=== PATIENT | female | born 1975 | race Caucasian/White ===

== ENCOUNTER → 2021-02-02 | Outpatient (CLI) | payer OTHER ==
[~2021-02-02] MED LIST: CALC600T60 PO; CHOL10003 PO; CYAN100063 PO; Collagen PO; LACT1CAP35 PO; LUTE1CAP PO; MELA5TAB14 PO; MULT-449 PO; VIT1TABL34 PO; [UNRECOGNIZED DRUG - CODE] PO; [UNRECOGNIZED DRUG - OTHER] PO
[2021-02-02 08:38] LABS: BASOPHILS % (AUTO) 1 % (0-1); EOSINOPHILS % (AUTO) 2 % (1-7); LYMPHOCYTES % (AUTO) 30 % (22-44); MEAN CORPUSCULAR HGB CONC 34.7 g/dL (32.4-35.8); MEAN PLATELET VOLUME 8.5 fL (7.4-10.4); MONOCYTES % (AUTO) 9 % (2-9); NEUTROPHILS % (AUTO) 58 % (42-75); PLATELET COUNT 255 x10^3/uL (130-400); RED BLOOD COUNT 4.61 x10^6/uL (3.82-5.3); RED CELL DISTRIBUTION WIDTH 12.2 % (9.6-15.2)
[2021-02-02 08:42] LABS: MICROSCOPIC INDICATED
[2021-02-02 08:51] LABS: ALANINE AMINOTRANSFERASE 26 U/L (12-78); ALBUMIN 3.4 g/dL (3.4-5.0); ANION GAP 4 mmol/L (5-15); CALCIUM 8.4 mg/dL (8.5-10.1); CHLORIDE 108 mmol/L (98-107)
[2021-02-02 08:54] LABS: ALKALINE PHOSPHATASE 64 U/L (45-117); BILIRUBIN,TOTAL 0.5 mg/dL (0.2-1.0); CREATININE 0.64 mg/dL (0.55-1.02); TOTAL PROTEIN 7.2 g/dL (6.4-8.2)
== END | disposition home or self-care (01) ==
LOC: STAR 07:35
PROVIDERS: ATTEND Obstetrics & Gynecology
DX: Z01.818 Encounter for other preprocedural examination (principal); D25.9 Leiomyoma of uterus, unspecified; N92.0 Excessive and frequent menstruation with regular cycle; R10.2 Pelvic and perineal pain
CPT/HCPCS: 36415; 80053; 81001; 85025; 87086

== ENCOUNTER 2021-02-08 05:44 | Day surgery (SDC) | payer OTHER ==
[~2021-02-08] VITALS: Ht 165.1 cm; Wt 81.5 kg
[2021-02-08] MEDS ORDERED: CHLORHEXIDINE 15 ML UDC PO ONE (06:30)
[2021-02-08] MEDS ORDERED: LACTATED RINGERS 1,000 ML IV SCH (06:30)
[2021-02-08] MEDS ORDERED: ACETAMINOPHEN 500 MG TABLET PO ONE (06:30)
[2021-02-08 06:34] VITALS: BP 122/78
[2021-02-08] MEDS ORDERED: FENTANYL PF 250 MCG/5ML ONE (07:03)
[2021-02-08] MEDS ORDERED: MIDAZOLAM 1 MG/ML, 2ML ONE (07:03)
[2021-02-08] MEDS ORDERED: EPINEPHRINE 1 MG/ML, 1ML ONE (07:07)
[2021-02-08] MEDS ORDERED: BUPIVACAINE/PF 0.25% ONE (07:07)
[2021-02-08] MEDS ORDERED: FLUORESCEIN SODIUM 500 MG/5 ML ONE (07:07)
[2021-02-08] MEDS ORDERED: CEFAZOLIN 1,000 MG ONE (07:34)
[2021-02-08] MEDS ORDERED: GLYCOPYRROLATE 0.2MG/1ML, 5ML ONE (07:34)
[2021-02-08] MEDS ORDERED: DEXAMETHASONE 4 MG/ML, 1ML ONE (07:34)
[2021-02-08] MEDS ORDERED: NEOSTIGMINE 1 MG/ML, 10ML ONE (07:34)
[2021-02-08] MEDS ORDERED: ROCURONIUM 10MG/ML,5ML ONE (07:34)
[2021-02-08] MEDS ORDERED: PROPOFOL 10 MG/ML, 20ML ONE (07:34)
[2021-02-08] MEDS ORDERED: ONDANSETRON 2MG/ML, 2ML ONE ×2 (07:34→09:57)
[2021-02-08] MEDS ORDERED: BUPIVACAINE/PF-EPI 0.25% 1:200K INFIL ONE (08:01)
[2021-02-08] MEDS ORDERED: FENTANYL PF 100 MCG/2ML ONE ×2 (09:55→10:41)
[2021-02-08] MEDS: ONDANSETRON 2MG/ML, 2ML IVPush PRN ×2 (10:00→12:20)
[2021-02-08] MEDS: FENTANYL PF 100 MCG/2ML IV PRN ×3 (10:05→10:43)
[2021-02-08] MEDS ORDERED: OXYcodone 5 MG/5 ML ORAL.SOL UDC ONE (10:20)
[2021-02-08] MEDS ORDERED: DIAZEPAM 5 MG/ML, 2ML IVPush PRN (10:30)
[2021-02-08] MEDS: OXYcodone 5 MG/5 ML ORAL.SOL UDC PO PRN ×2 (10:30→14:00)
[2021-02-08] MEDS ORDERED: MEPERIDINE/PF 25MG/0.5ML IVPush PRN (10:30)
[2021-02-08] MEDS ORDERED: ALBUTEROL SULFATE 2.5 MG/3 ML NPPB PRN (10:30)
[2021-02-08] MEDS ORDERED: hydrALAzine 20 MG/ML, 1ML IV PRN (10:30)
[2021-02-08] MEDS ORDERED: LABETALOL 5MG/ML, 20ML IV PRN (10:30)
[2021-02-08] MEDS ORDERED: KETOROLAC 30 MG/1 ML IV PRN (10:30)
[2021-02-08] MEDS ORDERED: HYDROmorphone 2 MG/ML, 1ML IVPush PRN (10:30)
[2021-02-08] MEDS ORDERED: PROMETHAZINE 25 MG/ML, 1ML IV PRN (10:30)
[2021-02-08] MEDS ORDERED: ACETAMINOPHEN 325 MG TABLET PO PRN (10:30)
== END 2021-02-08 14:30 | disposition home or self-care (01) ==
LOC: OUT 05:44
PROVIDERS: ATTEND Obstetrics & Gynecology
DX: D25.9 Leiomyoma of uterus, unspecified (principal); N92.0 Excessive and frequent menstruation with regular cycle; N94.6 Dysmenorrhea, unspecified; N80.0 Endometriosis of uterus; N83.292 Other ovarian cyst, left side; Z79.899 Other long term (current) drug therapy
CPT/HCPCS: 36415; 58554; 81025; 86850; 86900; 88307; J0171; J0690; J1100; J1885; J2250; J2405; J2704; J2710; J3010; J7120